=== PATIENT | female | born 1940 | race Caucasian/White ===

== ENCOUNTER 2016-09-13 08:55 | Outpatient (CLI) | payer OTHER ==
[2016-08-02 01:08] VITALS: BP 141/63
[~2016-09-13 08:55] MED LIST: HEPARIN SODIUM,PORCINE 30 UNITS INJ IV ONE; NORMAL SALINE 1,000 ML IV.SOLN IV ONE
== END 2016-09-13 08:56 ==
LOC: INF 08:55
PROVIDERS: ATTEND Internal Medicine Medical Oncology
DX: C20 Malignant neoplasm of rectum (principal); E86.0 Dehydration
CPT/HCPCS: 96360; 96361; J7030

== ENCOUNTER 2016-09-27 09:06 | Outpatient (CLI) | payer OTHER ==
[2016-08-02 01:08] VITALS: BP 141/63
[2016-09-27] MEDS ORDERED: NORMAL SALINE 1,000 ML IV.SOLN IV ONE (11:50)
[2016-09-27] MEDS ORDERED: HEPARIN SODIUM,PORCINE 30 UNITS INJ IV ONE (11:50)
[2016-09-27] MEDS ORDERED: SALINE FLUSH 10 ML DISP.SYRIN IVF ONE (11:50)
== END 2016-09-27 09:07 ==
LOC: INF 09:06
PROVIDERS: ATTEND Internal Medicine Medical Oncology
DX: C20 Malignant neoplasm of rectum (principal); E86.0 Dehydration
CPT/HCPCS: 96365; 96366; J7030

== ENCOUNTER 2016-10-11 10:35 | Outpatient (CLI) | payer OTHER ==
[2016-08-02 01:08] VITALS: BP 141/63
[2016-10-11] MEDS ORDERED: SALINE FLUSH 10 ML DISP.SYRIN IVF ONE (11:00)
[2016-10-11] MEDS ORDERED: HEPARIN SODIUM,PORCINE 30 UNITS INJ IV ONE (11:00)
== END 2016-10-11 10:36 ==
LOC: INF 10:35
PROVIDERS: ATTEND Internal Medicine Medical Oncology
DX: C20 Malignant neoplasm of rectum (principal); E86.0 Dehydration
CPT/HCPCS: 96360

== ENCOUNTER 2016-10-25 09:49 | Outpatient (CLI) | payer OTHER ==
[2016-08-02 01:08] VITALS: BP 141/63
[2016-10-25] MEDS ORDERED: SALINE FLUSH 10 ML DISP.SYRIN IVF ONE (10:00)
[2016-10-25] MEDS ORDERED: HEPARIN SODIUM,PORCINE 30 UNITS INJ IV ONE (10:00)
== END 2016-10-25 09:50 ==
LOC: INF 09:49
PROVIDERS: ATTEND Internal Medicine Medical Oncology
DX: C20 Malignant neoplasm of rectum (principal); E86.0 Dehydration
CPT/HCPCS: 96360

== ENCOUNTER 2016-11-08 09:12 | Outpatient (CLI) | payer OTHER ==
[2016-08-02 01:08] VITALS: BP 141/63
[~2016-11-08 09:12] MED LIST changes: -NORMAL SALINE 1,000 ML IV.SOLN IV ONE; +SALINE FLUSH 10 ML DISP.SYRIN IVF ONE
== END 2016-11-08 09:13 ==
LOC: INF 09:12
PROVIDERS: ATTEND Internal Medicine Medical Oncology
DX: C20 Malignant neoplasm of rectum (principal); E86.0 Dehydration
CPT/HCPCS: 96360

== ENCOUNTER 2016-12-04 14:59 | Inpatient (IN) | payer OTHER ==
--- NOTE | 2016-12-04 18:52 | History and Physical Report ---
History of Present Illnes - History of Present Illness Reason for Visit: gait disturbance History of Present Illness: 76yo white female who was recently diagnosed with an obstructing colorectal cancer in Apr 2016. Patient had a colostomy placed and underwent chemotherapy. At the time of diagnosis patient was noted to have metastasis to her liver and bone. Recent PET scan showed no evidence of cancer except in the rectal area. Patient recently under went and abdominal perineal resection. Patient admitted to [facility] for further SNF care. Patient states she has been nauseated for the last three days, no vomiting noted. Seems to get worse post eating. Is on some maintenance therapy. Patient has been living with her son and plans to return there. No stairs in home. Patient will not have to cook. Has a walk-in shower. 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 negative: Fever, Chills Eyes: negative: pain, vision change ENT: negative: Ear Pain, Ear Discharge, Nose Pain, Nose Discharge, Nose Congestion, Mouth Pain, Mouth Swelling, Throat Pain, Throat Swelling Respiratory: SOB with Excertion (mild). negative: Cough, Dry, Shortness of Breath, Hemoptysis, Pleuritic Pain, Sputum, Wheezing Cardiovascular: negative: Chest Pain, Palpitations, Orthopnea, Edema, Light Headedness Gastrointestinal: Abdominal Pain. negative: Nausea, Vomiting, Diarrhea, Constipation, Melena, Hematochezia Genitourinary: negative: Dysuria, Frequency, Incontinence, Hematuria Musculoskeletal: negative: Back Pain Skin: negative: Rash, Lesions Neurological: negative: Numbness, Change in Speech - Medications/Allergies Allergies/Adverse Reactions: Allergies Allergy/AdvReac Type Severity Reaction Status Date / Time buprenorphine HCl Allergy Verified 08/01/16 21:15 [From Buprenex] levofloxacin [From Levaquin] Allergy Verified 08/01/16 21:15 Exam - Exam General: Alert, Oriented to Person, Oriented to Place, Oriented to Time, Cooperative HEENT: No: Decreased Hearing Acuity Neck: Normal Range of Motion. No: Lymphadenopathy Carotids: WNL Thyroid: WNL Lungs: Clear to auscultation, Normal air movement. No: Wheezes, Rales, Rhonchi Cardiovascular: Regular rate, Normal S1, Normal S2, No murmurs Abdomen: Normal bowel sounds, Soft, No tenderness, No hepatospenomegaly, No masses, Other (colostomy appears to be functioning well). No: Distended Integumentary: Normal, [place], Warm, Dry Extremities: No clubbing, No cyanosis, No edema Neurological: Normal speech, Strength Equal Bilat, Normal tone, Sensation intact , Cranial nerves 3-12 NL, Reflexes 2+ Psych/Mental Status: Mental status NL, Mood NL, Appropriate Affect Assessment/Plan - Assessment/Plan (1) Gait abnormality Status: Acute Current Visit: Yes Assessment: PT and OT assessment (2) Colon cancer metastasized to liver Status: Acute Current Visit: Yes Narrative Support Text: found to be metastasized to liver and bone, underwent chemotherapy with resolution of lesions. Recently found to have obstructing colon mass (3) Atrial fibrillation, transient Status: Chronic Current Visit: Yes Assessment: Appears to be in NSR at this time, will continue with Xarelto (4) Hyperlipidemia Status: Chronic Current Visit: No Comment: continue with home med VTE Assessment - RISK FACTOR SCORE VTE RISK FACTOR SCORES: AGE OVER 60 YEARS, ANTICIPATED BED CONFINEMENT OR IMMOBILIZATION > 24 HOURS - RISK VTE MODERATE RISK: SCORE OF 2 (RISK PROXIMAL DVT 2-4%) PROPHYAXIS NEEDED ( patient is on Xarelto)
[2016-12-04 18:59] VITALS: BMI 21.6
[2016-12-04] MEDS: ONDANSETRON HCL 4 MG TAB.RAPDIS PO PRN (20:04)
[2016-12-04] MEDS ORDERED: GABAPENTIN 100 MG CAPSULE ONE (21:27)
[2016-12-04] MEDS: CITALOPRAM HYDROBROMIDE 20 MG TABLET PO SCH (21:42)
[2016-12-04] MEDS: traMADol HCL 50 MG TABLET PO PRN (21:42)
[2016-12-04] MEDS: RIVAROXABAN 10 MG TABLET PO SCH (21:43)
[2016-12-04] MEDS: SIMVASTATIN 40 MG TABLET PO SCH (21:44)
[2016-12-05] MEDS: traMADol HCL 50 MG TABLET PO PRN ×2 (05:08→17:11)
[2016-12-05] MEDS: POLYETHYLENE GLYCOL 3350 17 GM POWD.PACK PO SCH (11:19)
[2016-12-05] MEDS: CITALOPRAM HYDROBROMIDE 20 MG TABLET PO SCH (20:38)
[2016-12-05] MEDS: RIVAROXABAN 10 MG TABLET PO SCH (20:38)
[2016-12-05] MEDS: ACETAMINOPHEN 325 MG TABLET PO PRN (20:40)
[2016-12-05] MEDS: SIMVASTATIN 40 MG TABLET PO SCH (20:40)
[2016-12-06] MEDS: POLYETHYLENE GLYCOL 3350 17 GM POWD.PACK PO SCH (10:46)
[2016-12-06] MEDS: RIVAROXABAN 10 MG TABLET PO SCH (21:01)
[2016-12-06] MEDS: CITALOPRAM HYDROBROMIDE 20 MG TABLET PO SCH (21:01)
[2016-12-06] MEDS: SIMVASTATIN 40 MG TABLET PO SCH (21:02)
[2016-12-07] MEDS: traMADol HCL 50 MG TABLET PO PRN (04:05)
[2016-12-07] MEDS: ACETAMINOPHEN 325 MG TABLET PO PRN (04:05)
[2016-12-07] MEDS: POLYETHYLENE GLYCOL 3350 17 GM POWD.PACK PO SCH (12:00)
[2016-12-07] MEDS: SIMVASTATIN 40 MG TABLET PO SCH (21:14)
[2016-12-07] MEDS: CITALOPRAM HYDROBROMIDE 20 MG TABLET PO SCH (21:14)
[2016-12-07] MEDS: RIVAROXABAN 10 MG TABLET PO SCH (21:15)
[2016-12-08 07:43] LABS: COLOR,URINE YELLOW (YELLOW)
[2016-12-08 07:44] LABS: APPEARANCE,URINE CLOUDY (CLEAR); OCCULT BLOOD,URINE 2+ (NEGATIVE)
[2016-12-08] MEDS: SULFAMETHOXAZOLE/TRIMETHOPRIM 1 EACH TABLET PO SCH (09:16)
[2016-12-08] MEDS: POLYETHYLENE GLYCOL 3350 17 GM POWD.PACK PO SCH (09:16)
[2016-12-08] MEDS: ONDANSETRON HCL 4 MG TAB.RAPDIS PO PRN ×2 (09:16→15:03)
[2016-12-08] MEDS: CITALOPRAM HYDROBROMIDE 20 MG TABLET PO SCH (20:18)
[2016-12-08] MEDS: RIVAROXABAN 10 MG TABLET PO SCH (20:19)
[2016-12-08] MEDS: SIMVASTATIN 40 MG TABLET PO SCH (20:19)
[2016-12-08] MEDS: traMADol HCL 50 MG TABLET PO PRN (20:21)
[2016-12-08] MEDS: ACETAMINOPHEN 325 MG TABLET PO PRN (20:21)
[2016-12-09 06:45] LABS: BASOPHILS % 0.4 (0.0-1.5); EOSINOPHILS % 1.8 % (0.0-6.8); MEAN CORPUSCULAR HEMOGLOBIN 30.5 pg (28.0-34.0); MEAN CORPUSCULAR VOLUME 97.6 fl (80.0-100.0); MONOCYTES % 3.9 % (0.0-11.0); NEUTROPHILS # 6.2 # k/uL (1.4-7.7)
[2016-12-09 07:45] LABS: eGFR (African) > 60; eGFR (Non-African) > 60
[2016-12-09] MEDS: ONDANSETRON HCL 4 MG TAB.RAPDIS PO PRN (08:26)
[2016-12-09] MEDS: SULFAMETHOXAZOLE/TRIMETHOPRIM 1 EACH TABLET PO SCH (08:28)
[2016-12-09] MEDS: POLYETHYLENE GLYCOL 3350 17 GM POWD.PACK PO SCH (11:08)
[2016-12-09] MEDS: RIVAROXABAN 10 MG TABLET PO SCH (21:17)
[2016-12-09] MEDS: CITALOPRAM HYDROBROMIDE 20 MG TABLET PO SCH (21:17)
[2016-12-09] MEDS: SIMVASTATIN 40 MG TABLET PO SCH (21:17)
[2016-12-10] MEDS: SULFAMETHOXAZOLE/TRIMETHOPRIM 1 EACH TABLET PO SCH (08:32)
[2016-12-10] MEDS: POLYETHYLENE GLYCOL 3350 17 GM POWD.PACK PO SCH (11:04)
--- NOTE | 2016-12-10 11:10 | Inpatient Progress Note ---
Subjective - Required Recertification Statement I anticipate X number of days because-include discharge plan: 7 - Review of Systems Events since last encounter: Patient has been doing well with PT and OT. Has developed some urinary urgency and frequency. Had a urine culture done and has grown psuedomonas species. Appetite has been good, pain is stable. General: Denies: Chills, Fatigue Cardiovascular: Denies: Chest Pain, Palpitations Gastrointestinal: Denies: Nausea, Vomiting, Abdominal Pain Genitourinary: Dysuria, Frequency. Denies: Hematuria Objective - Exam Vitals and I&O: Vital Signs Temp 98.4 F 12/10/16 08:47 Pulse 77 12/10/16 09:00 Resp 17 12/10/16 09:00 BP 108/56 12/10/16 08:47 Pulse Ox 96 12/10/16 08:47 Intake & Output 12/09/16 12/09/16 12/10/16 11:59 23:59 11:59 Intake Total 360 680 120 Balance 360 680 120 Weight 53.977 kg Intake: Oral 360 680 120 Other: Voiding Method Toilet Toilet Toilet # Voids 5 10 General: Alert, Oriented to Person, Oriented to Place, Oriented to Time, Cooperative, No acute distress Lungs: Clear to auscultation, Normal air movement. No: Wheezes, Rales, Rhonchi Cardiovascular: Regular rate, Normal S1, Normal S2 Abdomen: Normal bowel sounds, Soft, No tenderness, No hepatospenomegaly, No masses, Other (colostomy functioning well) - Results Results: Laboratory Results WBC 8.40 K/ul (4.00-12.00) 12/09/16 06:25 RBC 3.49 M/ul (3.90-5.20) L 12/09/16 06:25 Hgb 10.6 g/dL (12.0-16.0) L 12/09/16 06:25 Hct 34.0 % (34.5-46.5) L 12/09/16 06:25 MCV 97.6 fl (80.0-100.0) 12/09/16 06:25 MCH 30.5 pg (28.0-34.0) 12/09/16 06:25 MCHC 31.3 g/dL (30.0-36.0) 12/09/16 06:25 RDW 15.3 % (11.3-14.3) H 12/09/16 06:25 Plt Count 482 K/mm3 (130-400) H 12/09/16 06:25 Neut % (Auto) 74.6 % (39.0-79.0) 12/09/16 06:25 Lymph % (Auto) 17.0 % (16.0-50.0) 12/09/16 06:25 [place] % (Auto) 3.9 % (0.0-11.0) 12/09/16 06:25 Eos % (Auto) 1.8 % (0.0-6.8) 12/09/16 06:25 Baso % (Auto) 0.4 (0.0-1.5) 12/09/16 06:25 Neut # 6.2 # k/uL (1.4-7.7) 12/09/16 06:25 Lymph # 1.4 # k/uL (0.6-4.0) 12/09/16 06:25 [place] # 0.3 # k/uL (0.0-0.9) 12/09/16 06:25 Eos # 0.2 # k/uL (0.0-0.6) 12/09/16 06:25 Baso # 0.0 # k/uL (0.0-0.5) 12/09/16 06:25 Reactive Lymphs % 2.3 % (0.0-5.0) 12/09/16 06:25 Reactive Lymphs # 0.2 # k/uL (0.0-0.8) 12/09/16 06:25 Sodium 138 mmol/L (136-145) 12/09/16 06:25 Potassium 3.8 mmol/L (3.5-5.0) 12/09/16 06:25 Chloride 100 mmol/L (98-110) 12/09/16 06:25 Carbon Dioxide 32 mmol/L (20-32) 12/09/16 06:25 BUN 7 mg/dL (10-26) L 12/09/16 06:25 Creatinine 0.6 mg/dL (0.4-1.5) 12/09/16 06:25 Estimated Creat Clear 78 12/09/16 06:25 Est GFR ( Amer) > 60 (60-) 12/09/16 06:25 Est GFR (Non-Af Amer) > 60 (60-) 12/09/16 06:25 Glucose 94 mg/dL (70-99) 12/09/16 06:25 Calcium 9.0 mg/dL (8.5-10.5) 12/09/16 06:25 Total Bilirubin 0.4 mg/dL (0.2-1.2) 12/09/16 06:25 AST 20 U/L (0-41) 12/09/16 06:25 ALT 19 U/L (0-45) 12/09/16 06:25 Alkaline Phosphatase 53 U/L (46-116) 12/09/16 06:25 Total Protein 6.4 g/dL (6.0-8.5) 12/09/16 06:25 Albumin 3.6 g/dL (3.0-5.5) 12/09/16 06:25 Urine Color Yellow (YELLOW) 12/08/16 02:00 Urine Appearance Cloudy (CLEAR) H 12/08/16 02:00 Urine pH 8.0 (5.0 - 8.0) 12/08/16 02:00 Ur Specific [place] 1.015 (1.010-1.030) 12/08/16 02:00 Urine Protein Trace mg/dL (NEGATIVE) 12/08/16 02:00 Urine Ketones Negative mg/dL (NEGATIVE) 12/08/16 02:00 Urine Occult Blood 2+ (NEGATIVE) H 12/08/16 02:00 Urine Nitrite Positive (NEGATIVE) H 12/08/16 02:00 Urine Bilirubin Negative (NEGATIVE) 12/08/16 02:00 Urine Urobilinogen 1.0 Eu (0.2-1.0) 12/08/16 02:00 Ur Leukocyte Esterase 3+ (NEGATIVE) H 12/08/16 02:00 Urine Glucose Negative mg/dL (NEGATIVE) 12/08/16 02:00 Assessment/Plan - Assessment/Plan (1) Urinary tract infection Status: Acute Current Visit: Yes Assessment: psuedomonas species, sensitive to cipro and levaquin. Patient reports allergy to Levaquin but stats the only problem she has with it was that is upset her stomach. No rash or breathing problems noted. (2) Colon cancer metastasized to liver Status: Acute Current Visit: Yes Assessment: stable, colostomy is functioning well (3) Gait abnormality Status: Acute Current Visit: Yes Assessment: participating with PT and OT well (4) Atrial fibrillation, transient Status: Chronic Current Visit: Yes Assessment: continue with Xarelto
[2016-12-10] MEDS: CIPROFLOXACIN HCL 500 MG TABLET PO SCH ×2 (13:10→19:44)
[2016-12-10] MEDS: RIVAROXABAN 10 MG TABLET PO SCH (19:44)
[2016-12-10] MEDS: CITALOPRAM HYDROBROMIDE 20 MG TABLET PO SCH (19:44)
[2016-12-10] MEDS: SIMVASTATIN 40 MG TABLET PO SCH (19:44)
[2016-12-11] MEDS: CIPROFLOXACIN HCL 500 MG TABLET PO SCH ×2 (08:36→19:51)
[2016-12-11] MEDS: POLYETHYLENE GLYCOL 3350 17 GM POWD.PACK PO SCH (11:35)
[2016-12-11] MEDS: SIMVASTATIN 40 MG TABLET PO SCH (19:51)
[2016-12-11] MEDS: CITALOPRAM HYDROBROMIDE 20 MG TABLET PO SCH (19:51)
[2016-12-11] MEDS: RIVAROXABAN 10 MG TABLET PO SCH (19:52)
[2016-12-11] MEDS: ONDANSETRON HCL 4 MG TAB.RAPDIS PO PRN (21:39)
[2016-12-12] MEDS: CIPROFLOXACIN HCL 500 MG TABLET PO SCH ×2 (09:21→21:23)
[2016-12-12] MEDS: POLYETHYLENE GLYCOL 3350 17 GM POWD.PACK PO SCH (11:00)
[2016-12-12] MEDS: CITALOPRAM HYDROBROMIDE 20 MG TABLET PO SCH (21:22)
[2016-12-12] MEDS: RIVAROXABAN 10 MG TABLET PO SCH (21:23)
[2016-12-12] MEDS: SIMVASTATIN 40 MG TABLET PO SCH (21:23)
[2016-12-13] MEDS: CIPROFLOXACIN HCL 500 MG TABLET PO SCH ×2 (08:20→20:37)
[2016-12-13] MEDS: POLYETHYLENE GLYCOL 3350 17 GM POWD.PACK PO SCH (11:55)
[2016-12-13] MEDS: CITALOPRAM HYDROBROMIDE 20 MG TABLET PO SCH (20:37)
[2016-12-13] MEDS: SIMVASTATIN 40 MG TABLET PO SCH (20:37)
[2016-12-13] MEDS: RIVAROXABAN 10 MG TABLET PO SCH (20:37)
[2016-12-13] MEDS: traMADol HCL 50 MG TABLET PO PRN (20:42)
[2016-12-14] MEDS: CIPROFLOXACIN HCL 500 MG TABLET PO SCH ×2 (09:17→20:09)
[2016-12-14] MEDS: POLYETHYLENE GLYCOL 3350 17 GM POWD.PACK PO SCH (11:50)
[2016-12-14] MEDS: SIMVASTATIN 40 MG TABLET PO SCH (19:59)
[2016-12-14] MEDS: CITALOPRAM HYDROBROMIDE 20 MG TABLET PO SCH (19:59)
[2016-12-14] MEDS: RIVAROXABAN 10 MG TABLET PO SCH (19:59)
[2016-12-15] MEDS: CIPROFLOXACIN HCL 500 MG TABLET PO SCH ×2 (08:58→20:46)
[2016-12-15] MEDS: POLYETHYLENE GLYCOL 3350 17 GM POWD.PACK PO SCH (11:23)
[2016-12-15] MEDS: CITALOPRAM HYDROBROMIDE 20 MG TABLET PO SCH (20:43)
[2016-12-15] MEDS: RIVAROXABAN 10 MG TABLET PO SCH (20:44)
[2016-12-16] MEDS: POLYETHYLENE GLYCOL 3350 17 GM POWD.PACK PO SCH (11:30)
[2016-12-16] MEDS ORDERED: MAG HYDROX/AL HYDROX/SIMETH 30 ML, Lidocaine 2%Visc 15ml 20 MG, PHENobarb/HYOSCY/ATROPI... PO ONE ×3 (15:46)
[2016-12-16] MEDS: CITALOPRAM HYDROBROMIDE 20 MG TABLET PO SCH (21:53)
[2016-12-16] MEDS: RIVAROXABAN 10 MG TABLET PO SCH (21:53)
[2016-12-16] MEDS: SIMVASTATIN 40 MG TABLET PO SCH (21:53)
[2016-12-17] MEDS: POLYETHYLENE GLYCOL 3350 17 GM POWD.PACK PO SCH (12:03)
[2016-12-17] MEDS: SIMVASTATIN 40 MG TABLET PO SCH (19:59)
[2016-12-17] MEDS: RIVAROXABAN 10 MG TABLET PO SCH (19:59)
[2016-12-17] MEDS: CITALOPRAM HYDROBROMIDE 20 MG TABLET PO SCH (19:59)
--- NOTE | 2016-12-18 08:04 | Discharge Summary ---
Discharge Summary - Discharge Sumary Condition at Discharge: Stable Home Medications: Ambulatory Orders Medication Instructions Recorded Lovastatin [Mevacor] 04/18/15 Polyethylene Glycol 3350 [Miralax] 17 gm PO 1100 08/01/16 Acetaminophen [Tylenol] 325 mg PO Q4H PRN #0 tablet 12/18/16 Ondansetron HCl Rapdis [Zofran ODT] 4 mg PO Q6H PRN #0 tab.rapdis 12/18/16 Rivaroxaban [Xarelto] 20 mg PO D #30 tablet 12/18/16 Consultations this Visit: None Procedures this Visit: None Allergies/Adverse Reactions: Allergies Allergy/AdvReac Type Severity Reaction Status Date / Time buprenorphine HCl Allergy Verified 08/01/16 21:15 [From Buprenex] levofloxacin [From Levaquin] Allergy Verified 08/01/16 21:15 Patient Problems: Current Active Problems Problem Status Onset Colon cancer metastasized to liver Acute Gait abnormality Acute Urinary tract infection Acute Atrial fibrillation, transient Chronic Discharge Summary: Patient was started on PT and OT. She participated well and at the time of discharge was transferring and walking much better. Patient states that she felt that she was stronger and more steady on her feet. Patient did have an episode of chest pain during her stay. EKG was stable with not ischemic changes. If was felt to be related to GERDs, was given a GI cocktail with relief of symptoms. Patient was able to do colostomy care. Patient had little pain during her stay and did not feel that she would need any pain medication at home. Atrial fibrillation remained stable without tachy or bradycardia. - Final Diagnosis (1) Urinary tract infection Problems: Patient finished course of antibiotic, no further symptoms (2) Colon cancer metastasized to liver Problems: Patient is stable, colostomy functioning well (3) Gait abnormality Problems: Improved. (4) Atrial fibrillation, transient Problems: Will continue with Xarelto
--- NOTE | 2016-12-18 08:17 | Inpatient Progress Note ---
Subjective - Required Recertification Statement I anticipate X number of days because-include discharge plan: 3 - Review of Systems Events since last encounter: Patient developed some chest and epigastric pain today. Is gone at this time. Patient states that she has been doing well. Is participating with PT and OT well. Feels that she is getting stronger. Colostomy is functioning well. Is having little pain. General: Denies: Chills, Night Sweats HEENT: Denies: Head Aches Pulmonary: Denies: Dyspnea, Cough Cardiovascular: Chest Pain. Denies: Palpitations Gastrointestinal: Denies: Nausea, Vomiting, Abdominal Pain, Constipation Genitourinary: Denies: Dysuria, Frequency Objective - Exam Vitals and I&O: Vital Signs Temp 97.2 F L 12/17/16 21:00 Pulse 97 H 12/17/16 21:00 Resp 22 12/17/16 21:00 BP 118/74 12/17/16 21:00 Pulse Ox 95 12/17/16 21:00 Intake & Output 12/17/16 12/17/16 12/18/16 11:59 23:59 11:59 Intake Total 120 180 Balance 120 180 Intake: Oral 120 180 Other: Voiding Method Toilet Toilet # Voids 3 3 # Bowel Movements 1 General: Alert, Oriented to Person, Oriented to Place, Oriented to Time, Cooperative, No acute distress Neck: Supple Lungs: Clear to auscultation, Normal air movement, Speaks full Sentences. No: Wheezes, Rales, Rhonchi Cardiovascular: Regular rate, Normal S1, Normal S2, Other (EKG shows NSR no ischemic changes noted.) Abdomen: Normal bowel sounds, Soft, Other (mild epigastric tenderness) Extremities: No clubbing, No cyanosis, No edema Skin: Normal, [place], Warm, Dry Psych/Mental Status: Appropriate Affect - Results Results: Laboratory Results WBC 8.40 K/ul (4.00-12.00) 12/09/16 06:25 RBC 3.49 M/ul (3.90-5.20) L 12/09/16 06:25 Hgb 10.6 g/dL (12.0-16.0) L 12/09/16 06:25 Hct 34.0 % (34.5-46.5) L 12/09/16 06:25 MCV 97.6 fl (80.0-100.0) 12/09/16 06:25 MCH 30.5 pg (28.0-34.0) 12/09/16 06:25 MCHC 31.3 g/dL (30.0-36.0) 12/09/16 06:25 RDW 15.3 % (11.3-14.3) H 12/09/16 06:25 Plt Count 482 K/mm3 (130-400) H 12/09/16 06:25 Neut % (Auto) 74.6 % (39.0-79.0) 12/09/16 06:25 Lymph % (Auto) 17.0 % (16.0-50.0) 12/09/16 06:25 [place] % (Auto) 3.9 % (0.0-11.0) 12/09/16 06:25 Eos % (Auto) 1.8 % (0.0-6.8) 12/09/16 06:25 Baso % (Auto) 0.4 (0.0-1.5) 12/09/16 06:25 Neut # 6.2 # k/uL (1.4-7.7) 12/09/16 06:25 Lymph # 1.4 # k/uL (0.6-4.0) 12/09/16 06:25 [place] # 0.3 # k/uL (0.0-0.9) 12/09/16 06:25 Eos # 0.2 # k/uL (0.0-0.6) 12/09/16 06:25 Baso # 0.0 # k/uL (0.0-0.5) 12/09/16 06:25 Reactive Lymphs % 2.3 % (0.0-5.0) 12/09/16 06:25 Reactive Lymphs # 0.2 # k/uL (0.0-0.8) 12/09/16 06:25 Sodium 138 mmol/L (136-145) 12/09/16 06:25 Potassium 3.8 mmol/L (3.5-5.0) 12/09/16 06:25 Chloride 100 mmol/L (98-110) 12/09/16 06:25 Carbon Dioxide 32 mmol/L (20-32) 12/09/16 06:25 BUN 7 mg/dL (10-26) L 12/09/16 06:25 Creatinine 0.6 mg/dL (0.4-1.5) 12/09/16 06:25 Estimated Creat Clear 78 12/09/16 06:25 Est GFR ( Amer) > 60 (60-) 12/09/16 06:25 Est GFR (Non-Af Amer) > 60 (60-) 12/09/16 06:25 Glucose 94 mg/dL (70-99) 12/09/16 06:25 Calcium 9.0 mg/dL (8.5-10.5) 12/09/16 06:25 Total Bilirubin 0.4 mg/dL (0.2-1.2) 12/09/16 06:25 AST 20 U/L (0-41) 12/09/16 06:25 ALT 19 U/L (0-45) 12/09/16 06:25 Alkaline Phosphatase 53 U/L (46-116) 12/09/16 06:25 Total Protein 6.4 g/dL (6.0-8.5) 12/09/16 06:25 Albumin 3.6 g/dL (3.0-5.5) 12/09/16 06:25 Urine Color Yellow (YELLOW) 12/08/16 02:00 Urine Appearance Cloudy (CLEAR) H 12/08/16 02:00 Urine pH 8.0 (5.0 - 8.0) 12/08/16 02:00 Ur Specific [place] 1.015 (1.010-1.030) 12/08/16 02:00 Urine Protein Trace mg/dL (NEGATIVE) 12/08/16 02:00 Urine Ketones Negative mg/dL (NEGATIVE) 12/08/16 02:00 Urine Occult Blood 2+ (NEGATIVE) H 12/08/16 02:00 Urine Nitrite Positive (NEGATIVE) H 12/08/16 02:00 Urine Bilirubin Negative (NEGATIVE) 12/08/16 02:00 Urine Urobilinogen 1.0 Eu (0.2-1.0) 12/08/16 02:00 Ur Leukocyte Esterase 3+ (NEGATIVE) H 12/08/16 02:00 Urine Glucose Negative mg/dL (NEGATIVE) 12/08/16 02:00 Assessment/Plan - Assessment/Plan (1) Urinary tract infection Status: Acute Current Visit: Yes Assessment: resolved (2) Colon cancer metastasized to liver Status: Acute Current Visit: Yes Assessment: stable (3) Gait abnormality Status: Acute Current Visit: Yes Assessment: improved (4) Atrial fibrillation, transient Status: Chronic Current Visit: Yes Assessment: In NSR at this time (5) Chest pain Status: Acute Current Visit: Yes Qualifiers: Chest pain type: unspecified Qualified Code(s): R07.9 - Chest pain, unspecified Assessment: pain was relieved with GI cocktail. Beleive it is GI related. Will continue to monitor
[2016-12-18 10:47] VITALS: BP 121/62
[2016-12-18] MEDS: POLYETHYLENE GLYCOL 3350 17 GM POWD.PACK PO SCH (12:00)
== END 2016-12-18 10:50 | disposition home or self-care (01) | DRG 690 ==
LOC: SOUTH 14:59
PROVIDERS: ADMIT Family Medicine; ATTEND Family Medicine
DX: N39.0 Urinary tract infection, site not specified (principal); C18.9 Malignant neoplasm of colon, unspecified; C78.7 Secondary malignant neoplasm of liver and intrahepatic bile duct; R26.9 Unspecified abnormalities of gait and mobility; I48.91 Unspecified atrial fibrillation
CPT/HCPCS: 36415; 80053; 81002; 85025; 87086; 87186; A9270

== ENCOUNTER 2017-01-16 09:27 | Outpatient (CLI) | payer OTHER ==
[2017-01-16] MEDS ORDERED: SALINE FLUSH 10 ML DISP.SYRIN IVF ONE (09:30)
[2017-01-16] MEDS ORDERED: HEPARIN SODIUM 500 UNIT/5 ML DISP.SYRIN IV ONE (09:30)
== END 2017-01-16 09:30 ==
LOC: INF 09:27
PROVIDERS: ATTEND Internal Medicine Medical Oncology
DX: C20 Malignant neoplasm of rectum (principal); E86.0 Dehydration
CPT/HCPCS: 96523; J1642

== ENCOUNTER 2017-01-31 12:41 | Outpatient (CLI) | payer OTHER ==
[~2017-01-31 12:41] MED LIST changes: +HEPARIN SODIUM 500 UNIT/5 ML DISP.SYRIN IV ONE; -HEPARIN SODIUM,PORCINE 30 UNITS INJ IV ONE; +NORMAL SALINE 1,000 ML IV.SOLN IV ONE
== END 2017-01-31 12:42 ==
LOC: INF 12:41
PROVIDERS: ATTEND Internal Medicine Medical Oncology
DX: C20 Malignant neoplasm of rectum (principal); E86.0 Dehydration
CPT/HCPCS: 96360; J1642; J7030

== ENCOUNTER 2017-02-06 10:30 | Outpatient (CLI) | payer OTHER | END 2017-02-06 10:31 | LOC: OUT 10:30 | PROVIDERS: ATTEND Colon & Rectal Surgery | DX: Z98.890 Other specified postprocedural states (principal); C20 Malignant neoplasm of rectum | CPT/HCPCS: G0463 ==

== ENCOUNTER 2017-02-14 10:59 | Outpatient (CLI) | payer OTHER ==
[~2017-02-14 10:59] MED LIST changes: -NORMAL SALINE 1,000 ML IV.SOLN IV ONE
== END 2017-02-14 13:47 ==
LOC: INF 10:59
PROVIDERS: ATTEND Internal Medicine Medical Oncology
DX: C20 Malignant neoplasm of rectum (principal); E86.0 Dehydration
CPT/HCPCS: 96523; J1642

== ENCOUNTER 2017-02-28 11:14 | Outpatient (CLI) | payer OTHER ==
[2017-02-28] MEDS ORDERED: HEPARIN SODIUM 500 UNIT/5 ML DISP.SYRIN IV ONE (11:30)
[2017-02-28] MEDS ORDERED: SALINE FLUSH 10 ML DISP.SYRIN IVF ONE (11:30)
== END 2017-02-28 11:15 ==
LOC: INF 11:14
PROVIDERS: ATTEND Internal Medicine Medical Oncology
DX: C20 Malignant neoplasm of rectum (principal); E86.0 Dehydration
CPT/HCPCS: 96523; J1642

== ENCOUNTER 2017-03-14 09:44 | Outpatient (CLI) | payer OTHER | END 2017-03-14 09:45 | LOC: INF 09:44 | PROVIDERS: ATTEND Internal Medicine Medical Oncology | DX: C20 Malignant neoplasm of rectum (principal); E86.0 Dehydration | CPT/HCPCS: 96523; J1642 ==

== ENCOUNTER 2017-03-28 11:33 | Outpatient (CLI) | payer OTHER | END 2017-03-28 11:34 | LOC: INF 11:33 | PROVIDERS: ATTEND Internal Medicine Medical Oncology | DX: C20 Malignant neoplasm of rectum (principal); E86.0 Dehydration | CPT/HCPCS: 96523; J1642 ==

== ENCOUNTER 2017-04-11 11:46 | Outpatient (CLI) | payer OTHER ==
[2017-04-11] MEDS ORDERED: SALINE FLUSH 10 ML DISP.SYRIN IVF ONE (12:00)
[2017-04-11] MEDS ORDERED: HEPARIN SODIUM 500 UNIT/5 ML DISP.SYRIN IV ONE (12:00)
== END 2017-04-11 11:56 ==
LOC: INF 11:46
PROVIDERS: ATTEND Internal Medicine Medical Oncology
DX: C20 Malignant neoplasm of rectum (principal); E86.0 Dehydration
CPT/HCPCS: 96523; J1642

== ENCOUNTER 2017-04-25 11:51 | Outpatient (CLI) | payer OTHER ==
[2017-04-25] MEDS ORDERED: SALINE FLUSH 10 ML DISP.SYRIN IVF ONE (12:00)
[2017-04-25] MEDS ORDERED: HEPARIN SODIUM 500 UNIT/5 ML DISP.SYRIN IV ONE (12:00)
== END 2017-04-25 11:52 ==
LOC: INF 11:51
PROVIDERS: ATTEND Internal Medicine Medical Oncology
DX: C20 Malignant neoplasm of rectum (principal); E86.0 Dehydration
CPT/HCPCS: 96523; J1642

== ENCOUNTER 2017-05-09 11:03 | Outpatient (CLI) | payer OTHER | END 2017-05-09 11:04 | LOC: INF 11:03 | PROVIDERS: ATTEND Internal Medicine Medical Oncology | DX: C20 Malignant neoplasm of rectum (principal); E86.0 Dehydration | CPT/HCPCS: 96523; J1642 ==

== ENCOUNTER 2017-05-23 09:37 | Outpatient (CLI) | payer OTHER ==
[2017-05-23] MEDS ORDERED: SALINE FLUSH 10 ML DISP.SYRIN IVF ONE (09:45)
[2017-05-23] MEDS ORDERED: HEPARIN SODIUM 500 UNIT/5 ML DISP.SYRIN IV ONE (09:45)
== END 2017-05-23 09:40 ==
LOC: INF 09:37
PROVIDERS: ATTEND Internal Medicine Medical Oncology
DX: C20 Malignant neoplasm of rectum (principal); E86.0 Dehydration
CPT/HCPCS: 96523; J1642

== ENCOUNTER 2017-06-06 10:15 | Outpatient (CLI) | payer OTHER ==
[2017-06-06] MEDS ORDERED: SALINE FLUSH 10 ML DISP.SYRIN IVF ONE (10:30)
[2017-06-06] MEDS ORDERED: HEPARIN SODIUM 500 UNIT/5 ML DISP.SYRIN IV ONE (10:30)
== END 2017-06-06 10:16 ==
LOC: INF 10:15
PROVIDERS: ATTEND Internal Medicine Medical Oncology
DX: C20 Malignant neoplasm of rectum (principal); E86.0 Dehydration
CPT/HCPCS: 96523; J1642

== ENCOUNTER 2017-06-20 11:05 | Outpatient (CLI) | payer OTHER | END 2017-06-20 11:06 | LOC: INF 11:05 | PROVIDERS: ATTEND Internal Medicine Medical Oncology | DX: C20 Malignant neoplasm of rectum (principal); E86.0 Dehydration | CPT/HCPCS: 96523; J1642 ==

== ENCOUNTER 2017-07-05 10:27 | Outpatient (CLI) | payer OTHER ==
[2017-07-05] MEDS ORDERED: SALINE FLUSH 10 ML DISP.SYRIN IVF ONE ×2 (10:30→10:43)
[2017-07-05] MEDS ORDERED: NORMAL SALINE 1,000 ML IV.SOLN IV ONE (10:30)
[2017-07-05] MEDS ORDERED: HEPARIN SODIUM 500 UNIT/5 ML DISP.SYRIN IV ONE (10:30)
== END 2017-07-05 10:28 ==
LOC: INF 10:27
PROVIDERS: ATTEND Internal Medicine Medical Oncology
DX: C20 Malignant neoplasm of rectum (principal); E86.0 Dehydration
CPT/HCPCS: J1642; J7030; 96360; 96361

== ENCOUNTER 2017-07-25 10:42 | Outpatient (CLI) | payer OTHER ==
[2017-07-25] MEDS ORDERED: 0.9 % SODIUM CHLORIDE 1,000 ML IV ONE (10:49)
[2017-07-25] MEDS ORDERED: NORMAL SALINE 1,000 ML IV.SOLN IV ONE (12:00)
[2017-07-25] MEDS ORDERED: SALINE FLUSH 10 ML DISP.SYRIN IVF ONE (12:00)
[2017-07-25] MEDS ORDERED: HEPARIN SODIUM 500 UNIT/5 ML DISP.SYRIN IV ONE (12:00)
== END 2017-07-25 10:43 ==
LOC: INF 10:42
PROVIDERS: ATTEND Family Medicine
DX: E86.0 Dehydration (principal); C20 Malignant neoplasm of rectum
CPT/HCPCS: J1642; J7030; 96360; 96361

== ENCOUNTER 2017-08-08 10:10 | Outpatient (CLI) | payer OTHER | END 2017-08-08 10:11 | LOC: INF 10:10 | PROVIDERS: ATTEND Internal Medicine Medical Oncology | DX: C20 Malignant neoplasm of rectum (principal); E86.0 Dehydration | CPT/HCPCS: 96360; 96361 ==

== ENCOUNTER 2017-08-18 09:51 | Outpatient (CLI) | payer OTHER ==
[2017-08-18] MEDS ORDERED: NORMAL SALINE 1,000 ML IV.SOLN IV ONE (12:00)
[2017-08-18] MEDS ORDERED: HEPARIN SODIUM 500 UNIT/5 ML DISP.SYRIN IV ONE (12:00)
[2017-08-18] MEDS ORDERED: SALINE FLUSH 10 ML DISP.SYRIN IVF ONE (12:00)
== END 2017-08-18 09:52 ==
LOC: INF 09:51
PROVIDERS: ATTEND Internal Medicine Medical Oncology
DX: E86.0 Dehydration (principal); C20 Malignant neoplasm of rectum
CPT/HCPCS: 96360; 96361; J1642; J7030

== ENCOUNTER 2017-08-22 10:05 | Outpatient (CLI) | payer OTHER ==
[2017-08-22] MEDS ORDERED: SALINE FLUSH 10 ML DISP.SYRIN IVF ONE (12:00)
[2017-08-22] MEDS ORDERED: HEPARIN SODIUM 500 UNIT/5 ML DISP.SYRIN IV ONE (12:00)
[2017-08-22] MEDS ORDERED: NORMAL SALINE 1,000 ML IV.SOLN IV ONE (12:00)
== END 2017-08-22 10:10 ==
LOC: INF 10:05
PROVIDERS: ATTEND Internal Medicine Medical Oncology
DX: E86.0 Dehydration (principal); C20 Malignant neoplasm of rectum
CPT/HCPCS: 96360; 96361; J1642; J7030

== ENCOUNTER 2017-08-24 09:52 | Outpatient (CLI) | payer OTHER ==
[2017-08-24] MEDS ORDERED: SALINE FLUSH 10 ML DISP.SYRIN IVF ONE ×2 (10:01→12:00)
[2017-08-24] MEDS ORDERED: 0.9 % SODIUM CHLORIDE 1,000 ML IV ONE (10:01)
[2017-08-24] MEDS ORDERED: NORMAL SALINE 1,000 ML IV.SOLN IV ONE (12:00)
[2017-08-24] MEDS ORDERED: HEPARIN SODIUM 500 UNIT/5 ML DISP.SYRIN IV ONE (12:00)
== END 2017-08-24 09:53 ==
LOC: INF 09:52
PROVIDERS: ATTEND Internal Medicine Medical Oncology
DX: E86.0 Dehydration (principal); C20 Malignant neoplasm of rectum
CPT/HCPCS: 96360; 96361; J1642; J7030

== ENCOUNTER 2017-09-05 09:40 | Outpatient (CLI) | payer OTHER ==
[2017-09-05] MEDS ORDERED: NORMAL SALINE 1,000 ML IV.SOLN IV ONE (10:00)
[2017-09-05] MEDS ORDERED: SALINE FLUSH 10 ML DISP.SYRIN IVF ONE (10:00)
[2017-09-05] MEDS ORDERED: HEPARIN SODIUM 500 UNIT/5 ML DISP.SYRIN IV ONE (10:00)
== END 2017-09-05 09:42 ==
LOC: INF 09:40
PROVIDERS: ATTEND Internal Medicine Medical Oncology
DX: C20 Malignant neoplasm of rectum (principal); E86.0 Dehydration
CPT/HCPCS: 96360; 96361; J1642; J7030

== ENCOUNTER 2017-09-10 15:26 | Outpatient (CLI) | payer OTHER | END 2017-09-10 15:27 | LOC: LAB 15:26 | PROVIDERS: ATTEND Internal Medicine Medical Oncology | DX: Z53.9 Procedure and treatment not carried out, unspecified reason (principal) ==

== ENCOUNTER 2017-09-11 08:42 | Outpatient (CLI) | payer OTHER ==
[2017-09-11] MEDS ORDERED: SALINE FLUSH 10 ML DISP.SYRIN IVF ONE (08:55)
[2017-09-11] MEDS ORDERED: 0.9 % SODIUM CHLORIDE 100 ML IV ONE (08:55)
[2017-09-11] MEDS ORDERED: HEPARIN SODIUM 500 UNIT/5 ML DISP.SYRIN IV ONE (12:55)
== END 2017-09-11 08:44 ==
LOC: INF 08:42
PROVIDERS: ATTEND Internal Medicine Medical Oncology
DX: D64.89 Other specified anemias (principal)
CPT/HCPCS: 36415; 36430; 86885; 86900; 86901; 86920; J1642; P9040